=== PATIENT | female | born 1945 | race Caucasian/White ===

== ENCOUNTER 2018-03-26 14:47 | Outpatient (CLI) | payer MEDICARE ==
--- NOTE | 2018-03-27 09:26 | DEXA Report ---
Procedure Date: 03/26/2018 Accession Number: [id number] / [id number] Procedure: DEX - Dexa Spine and/or Hip CPT Code: FULL RESULT: EXAM: Dexa Spine and/or Hip DATE: 03/26/2018 3:19 PM CLINICAL HISTORY: OSTEOPOROSIS TECHNIQUE: Dual energy x-ray absorptiometry (DXA) was performed on a [employer] System. Regions measured are the AP Spine, femoral neck, and if needed forearm. COMPARISON: None. In accordance with the International Society for Clinical Densitometry (ISCD) guidelines, data from previous exams may be reanalyzed using current recommendations and techniques. This is done to allow a more accurate basis for comparison with the current study. FINDINGS: The data for the lumbar spine is as follows: BMD (g/cm/cm) T-SCORE Z-SCORE REGION L1 0.888 -2.0 -0.1 L2 0.854 -2.9 -1.0 L3 0.990 -1.8 0.1 L4 0.962 -2.0 -0.1 TOTAL 0.928 -2.1 -0.2 NOTE: All evaluable vertebrae are used for classification The data for the hip is as follows: BMD (g/cm/cm) T-SCORE Z-SCORE REGION Neck 0.807 -1.7 0.3 TOTAL 0.890 -0.9 0.8 NOTE: The femoral neck or total proximal femur, whichever is lowest, is used for classification. IMPRESSION: THE WHO CLASSIFICATION BASED ON THE INTERNATIONAL REFERENCE STANDARD IS OSTEOPENIA. THE FRACTURE RISK IS INCREASED. RECOMMENDATION: Patients with diagnosis of osteoporosis or osteopenia should have regular bone mineral density assessment. For those eligible for Medicare, routine testing is allowed once every 2 years. Testing frequency can be increased for patients who have rapidly progressing disease or for those who are receiving medical therapy to restore bone mass. COMMENT: World Health Organization (WHO) definitions for osteoporosis and osteopenia: NORMAL BMD: T-score at -1.0 or higher, fracture risk is low OSTEOPENIA BMD: T-score between -1.0 and -2.5, fracture risk is increased. OSTEOPOROSIS BMD: T-score at -2.5 or lower, fracture risk is high. National Osteoporosis Foundation recommends: 1. Obtain adequate dietary calcium (at least 1200 mg per day) and vitamin D (400-800 international units per day). 2. Participate, as appropriate, in regular weightbearing and muscle-strengthening exercise. 3. Avoid tobacco use and reduce alcohol and caffeine intake. 4. For more detailed information see the website at www.NOF.org.
== END 2018-03-26 14:48 | disposition home or self-care (01) ==
LOC: DI 14:47
PROVIDERS: ATTEND Internal Medicine
DX: M85.89 Other specified disorders of bone density and structure, multiple sites (principal)
CPT/HCPCS: 77080

== ENCOUNTER 2018-03-26 14:49 | Outpatient (CLI) | payer MEDICARE ==
--- NOTE | 2018-03-27 14:28 | Mammography Report ---
Procedure Date: 03/26/2018 Accession Number: [id number] / [id number] Procedure: ADELA - Screening Mammo Dig Bilat CPT Code: FULL RESULT: EXAM: Screening Mammo Dig Bilat DATE: 03/26/2018 3:20 PM CLINICAL HISTORY: 72-year-old nulliparous patient with history of benign left breast biopsy for screening TECHNIQUE: Bilateral CC and MLO views were obtained. COMPARISON: 10/19/2014, 09/27/2011, 08/14/2010 FINDINGS: The breasts demonstrate scattered fibroglandular densities bilaterally. Postbiopsy changes in the left outer central breast are stable. A few punctate, typically benign calcifications are present. No suspicious masses, clustered microcalcifications, or regions of architectural distortion are identified. IMPRESSION: Benign findings RECOMMENDATION: Routine annual screening unless otherwise clinically indicated. BIRADS CATEGORY 2: Benign findings STANDARD QUALIFYING STATEMENTS: 1. This examination was reviewed with the aid of Computer-Aided Detection (CAD). 2. A negative or benign imaging report should not delay biopsy if clinically suspicious findings are present. Consider surgical consultation if warrented. More than 5% of cancers are not identified by imaging. 3. Dense breasts may obscure an underlying neoplasm.
== END 2018-03-26 14:50 | disposition home or self-care (01) ==
LOC: DI 14:49
PROVIDERS: ATTEND Internal Medicine
DX: Z12.31 Encounter for screening mammogram for malignant neoplasm of breast (principal)
CPT/HCPCS: 77067

== ENCOUNTER 2020-03-10 11:00 | Outpatient (CLI) | payer MEDICARE ==
--- NOTE | 2020-03-10 14:50 | XRAY Report ---
PROCEDURE: Chest 2 View X-Ray INDICATIONS: INTERCOSTAL PAIN TECHNIQUE: 2 view(s) of the chest. COMPARISON: None. FINDINGS: Surgical changes and devices: None. Lungs and pleura: No pleural effusions or pneumothorax. Lungs are clear. Mediastinum: Mildly tortuous thoracic aorta is seen. Heart size is normal. Bones and chest wall: No suspicious bony abnormalities. Soft tissues appear unremarkable. IMPRESSION: No acute cardiopulmonary pathology. Reviewed by: Eddy Arce MD on 03/10/2020 2:48 PM PDT Approved by: Eddy Arce MD on 03/10/2020 2:48 PM PDT Station ID: [id number]
== END 2020-03-10 11:01 | disposition home or self-care (01) ==
LOC: DI 11:00
PROVIDERS: ATTEND Internal Medicine
DX: R07.82 Intercostal pain (principal)
CPT/HCPCS: 71046

== ENCOUNTER 2020-03-21 10:23 | Outpatient (CLI) | payer MEDICARE ==
--- NOTE | 2020-03-21 17:20 | Nuclear Medicine Report ---
PROCEDURE: Rest and exercise myocardial perfusion SPECT with gated imaging and ejection fraction INDICATIONS: FATIGUE W/EXERTION RADIOPHARMACEUTICAL: 8.2 mCi Tc-99m sestamibi IV at rest and 26.4 mCi Tc-99m sestamibi IV at peak ex ercise. Fme-msm-hnlyvkov was performed. TECHNIQUE: Radiopharmaceutical was injected at peak stress test, and also at rest. SPECT images wer e obtained. SPECT myocardial perfusion images were displayed in short axis, horizontal long axis, an d vertical long axis views. Gated images were reviewed using [employer] software. COMPARISON: None available. FINDINGS: Raw data: There is good myocardial labeling by radiotracer. No significant motion artifacts. Left ventricle function: Gated images demonstrate normal left ventricle wall thickening. No segment al wall motion abnormality. No transient ischemic dilation. The left ventricle end-diastolic volume is normal. Left ventricle stress ejection fraction is greater than 70%; normal values are above 45%. Myocardial perfusion: There is a small, mild, fixed perfusion defect in the anterior septum, which i s improved on prone imaging, likely caused by attenuation artifact. There is otherwise normal distrib ution of activity in the left and right ventricular myocardium. No convincing fixed or reversible pe rfusion defects to suggest myocardial ischemia or infarct. IMPRESSION: 1. Normal myocardial perfusion images. No perfusion defect to suggest myocardial ischemia or infarct. 2. Normal left ventricular volume and systolic function. PQRS ATTESTATIONS: Measure 322 - Is this imaging test primarily performed on a low-risk surgery patient for preoperative evaluation within 30 days preceding their low-risk non-cardiac surgery? Low-risk surgery is defined as cardiac or myocardial infarction less than 1%, including (but not limited to) endoscopic pr ocedures, superficial procedures, cataract surgery, and excisional breast surgery: Answer: No Measure 323 - Is this imaging test performed primarily for the monitoring of an asymptomatic patient who had percutaneous coronary intervention on the visit date or within 2 years of the visit date? An swer: No Measure 324 - Is this imaging test performed primarily for the initial detection and risk assessment on an asymptomatic, low coronary heart disease patient? Low CHD risk definition = clinicians should consider the maximum number of available patient factors used to estimate risk based on [place] (A TP III criteria), typically age, gender, diabetes, smoking status, and use of blood pressure medicati on, and integrate age appropriate estimates for missing elements, such as LDL or standard blood press ure. Answer: No Reviewed by: Dea Silva MD on 03/21/2020 5:18 PM PDT Approved by: Dea Silva MD on 03/21/2020 5:18 PM PDT Station ID: [id number]
--- NOTE | 2020-03-21 18:36 | CARDIAC PROCEDURE NOTE ---
DATE OF SERVICE: 03/21/2020 Physician: Quita Manning MD EXERCISE CARDIOLITE - VIRIDIANA PROTOCOL TIME: 7 minutes 1 second. METS was 8.61. REASON FOR STOPPING TEST: Shortness of breath and patient had exceeded the 85% of maximum predicted heart rate and exercised over 1 minute after injection of Cardiolite. HEART RATE RESPONSE: 70 to a maximum of 140. BLOOD PRESSURE RESPONSE: 144/87 to a maximum of 184/84. SYMPTOMS: No chest pain. ST SEGMENT RESPONSE: There were ST segment depressions of 1 mm in leads II, III, and aVF at maximal exercise. ARRHYTHMIAS: Occasional PAC. IMPRESSION: No symptoms. No significant EKG changes. CONCLUSION: Await Cardiolite portion of test. TD: 03/21/2020 18:21 MTDD
== END 2020-03-21 10:24 | disposition home or self-care (01) ==
LOC: DI 10:23
PROVIDERS: ATTEND Internal Medicine
DX: R53.83 Other fatigue (principal)
CPT/HCPCS: 78452; 93017; A9500

== ENCOUNTER 2020-04-24 14:01 | Outpatient (CLI) | payer MEDICARE ==
--- NOTE | 2020-04-24 18:00 | XRAY Report ---
PROCEDURE: Orbits Complete INDICATIONS: HEADACHE TECHNIQUE: 5 views of the orbits acquired. COMPARISON: None FINDINGS: Bones: No fractures; orbital rims appear intact throughout. No suspicious bony lesions. Visualized sinuses appear clear on the right but there is subtotal filling of the left maxillary sinus by an ai r-fluid level.. Soft tissues: No suspicious soft tissue calcifications or densities. IMPRESSION: Large air-fluid level within the left maxillary sinus, likely a manifestation of acute sinusitis in t he absence of trauma. Reviewed by: Sharan Murry MD on 04/24/2020 5:59 PM PDT Approved by: Sharan Murry MD on 04/24/2020 5:59 PM PDT Station ID: [id number]
--- NOTE | 2020-04-24 18:03 | XRAY Report ---
PROCEDURE: Mandible Bilat INDICATIONS: HEADACHE TECHNIQUE: 4 views of the mandible were acquired. COMPARISON: ORBIT plain films same day reviewed. FINDINGS: Bones: No mandibular fractures or dislocations. No suspicious bony lesions. Soft tissues: Visualized sinuses appear clear except for a fluid level within the left maxillary sin us largely filling that sinus cavity. No suspicious soft tissue densities. IMPRESSION: No mandibular fracture found. Left maxillary sinus air-fluid level is prominent and may represent acu te sinusitis as the underlying cause in the absence of trauma. Please note that CT scanning provides a much more accurate method for detection of mandibular and periorbital/facial fractures if clinicall y warranted. Reviewed by: Sharan Murry MD on 04/24/2020 6:02 PM PDT Approved by: Sharan Murry MD on 04/24/2020 6:02 PM PDT Station ID: [id number]
== END 2020-04-24 14:02 | disposition home or self-care (01) ==
LOC: DI 14:01
PROVIDERS: ATTEND Internal Medicine
DX: R51 Headache (principal)
CPT/HCPCS: 70110; 70200